=== PATIENT | female | born 1980 | race Caucasian/White ===

== ENCOUNTER 2021-03-07 16:55 | Observation (INO) | payer BC ==
--- NOTE | 2021-03-07 18:19 | PCM.LDHP ---
<Verena Johnson - Last Filed: 03/07/21 22:01> L&D History of Present Illness - General Date of Service: 03/07/21 Admit Problem/Dx: Admission Diagnosis/Problem Admission Diagnosis/Problem Source of Information: Patient, Significant Other - History of Present Illness Introduction:: Whitney Wiseman is a 40 year old female who is day two from in [place]. Dr. Bowser is her tax evaluator. Whitney presents today with concerns for elevated blood pressures. She states that she had gestational hypertension during this and was diagnosed with pre-eclampsia in her last . Her blood pressures had been stable on Labetalol. However, she was noted to have an elevated blood pressure prior to discharge home, and her labetalol was increased to 200mg TID. She had previously been taking 100mg TID. She states there was a mix up at the pharmacy, and she had received the 100mg dosage of her medication. She also thinks that she may have missed a dose of Labetalol while on the way home from the hospital yesterday. She and her had been monitoring her blood pressures today and noted they were significantly elevated to 185/90, 192/100. [address] Bowser's office and were told that they should present to the OB floor for further evaluation. Due to her high blood pressures and distance from [place], her made the decision to stop here in [facility] for evaluation. Whitney has been otherwise feeling well. She denies any headache, vision changes, abdominal pain, or shortness of breath. She is currently . She has no other concerns. - Related Data Allergies/Adverse Reactions: Allergies Allergy/AdvReac Type Severity Reaction Status Date / Time No Known Allergies Allergy Verified 01/31/16 19:53 Home Medications: Home Meds Aspirin 81 mg PO DAILY 01/27/16 [History] Labetalol HCl [Labetalol] 200 mg PO TID 01/27/16 [History] Vit No.129/Iron/FA [ One Daily Tablet] 1 tab PO DAILY 01/27/16 [History] Past Medical History HEENT History: Reports: None Cardiovascular History: Reports: Other (See Below) Other Cardiovascular History: preeclampsia Respiratory History: Reports: None Gastrointestinal History: Reports: None Genitourinary History: Reports: None 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: Musculoskeletal History: Reports: None Neurological History: Reports: None Psychiatric History: Reports: None Endocrine/Metabolic History: Reports: None Hematologic History: Reports: None Immunologic History: Reports: None Oncologic (Cancer) History: Reports: None Dermatologic History: Reports: None - Infectious Disease History Infectious Disease History: Reports: None - Past Surgical History Head Surgeries/Procedures: Reports: None Social & Family History - Family History Family Medical History: No Pertinent Family History H&P Review of Systems - Review of Systems: Review Of Systems: See Below General: Denies: Fever, Chills HEENT: Denies: Headaches, Sore Throat, Visual Changes Pulmonary: Denies: Shortness of Breath, Wheezing Cardiovascular: Reports: Edema. Denies: Chest Pain, Palpitations, Dyspnea on Exertion, Syncope Gastrointestinal: Denies: Abdominal Pain, Diarrhea, Nausea, Vomiting Genitourinary: Denies: Dysuria, Frequency, Burning Skin: Denies: Cyanosis, Rash Neurological: Denies: Dizziness, Headache, Numbness, Tingling, Change in Speech Hematologic/Lymphatic: Reports: Anemia. Denies: Easy Bleeding, Easy Bruising Immunologic: Denies: Anaphylaxis, Environmental Allergy L&D Exam - Exam Exam: See Below - Exam General: No: Alert, Oriented HEENT: No: Pupils Equal, PERRLA Neck: No: Supple, Lymphadenopathy Lungs: No: Clear to Auscultation, Normal Respiratory Effort Cardiovascular: No: Regular Rate, Regular Rhythm GI/Abdominal Exam: No: Normal Bowel Sounds, Soft Extremities: Pedal Edema, Other (1+ lower extremity edema). No: Non-Tender Skin: Warm, Dry, Intact Neurological: Cranial Nerves Intact, Reflexes Equal Bilateral, Strength Equal Bilateral, Normal Tone DTR: 3+: Patella (L), Patella (R), Achilles (L), Achilles (R) Psychiatric: Alert, Normal Mood - Patient Data Result Diagrams: 03/07/21 18:31 03/07/21 18:31 Problem List Initiated/Reviewed/Updated: Yes Assessment/Plan Comment:: Assessment: Whitney Wiseman is a 40 year old female who is day two from , here with elevated blood pressures secondary to pre- eclampsia Plan: - Blood pressure elevated to 169/99 on presentation to the OB floor. She was given a dose of 10mg IV labetalol with improvement of her blood pressures. Most recent blood pressure 140/69. - PIH labs were obtained, LDH was slightly elevated at 253. - Urine PCR was elevated at 0.3, consistent with pre-eclampsia. - She was loaded with 4mg of Magnesium and started on an infusion with a rate of 2g/hr. - Will monitor magnesium levels and blood pressures closely. - The case was discussed with Dr. Guzman, who is telecommunications linesworker for OBG[employer] in [place]. He is in agreement with current management and will update Dr. Bowser on the patient. <Yudelka Spring - Last Filed: 03/08/21 07:55> L&D History of Present Illness - General Admit Problem/Dx: Patient Status Order with Admit Dx/Problem 03/07/21 19:33 Patient Status [ADT] Routine Admission Diagnosis/Problem Admission Diagnosis/Problem Pre-eclampsia, L&D Exam - Vital Signs Vital Signs: Last Vital Signs Temp 98.7 F 03/08/21 06:00 Pulse 82 03/08/21 06:00 Resp 16 03/08/21 06:00 BP 147/82 H 03/08/21 06:00 Pulse Ox 98 03/08/21 06:00 - Patient Data Lab Results Last 24 hrs: Laboratory Results - last 24 hr 03/07/21 03/07/21 03/07/21 Range/Units 18:31 18:31 18:55 WBC 9.3 (5.0-10.0) 10^3/uL RBC 3.85 L (4.2-5.4) 10^6/uL Hgb 11.3 L (12.0-16.0) g/dL Hct 33.9 L (37.0-47.0) % MCV 88.1 (80-100) fL MCH 29.4 (27.0-34.0) pg MCHC 33.3 (33.0-35.0) g/dL Plt Count 252 (150-450) 10^3/uL BUN 15 (7-18) mg/dL Creatinine 0.74 (0.55-1.02) mg/dL Est Cr Clr Drug Dosing TNP Estimated GFR (MDRD) > 60 Uric Acid 3.9 (2.6-6.0) mg/dL Magnesium (1.8-2.4) mg/dL AST 24 (15-37) U/L ALT 41 (14-59) U/L Lactate Dehydrogenase 253 H (81-234) U/L Urine Color Yellow (YELLOW) Urine Appearance Slightly cloudy (CLEAR) Urine pH 7.0 (5.0-9.0) Ur Specific [place] 1.020 (1.005-1.030) Urine Protein Negative (NEGATIVE) Urine Glucose (UA) Negative (NEGATIVE) Urine Ketones Negative (NEGATIVE) Urine Occult Blood Negative (NEGATIVE) Urine Nitrite Negative (NEGATIVE) Urine Bilirubin Negative (NEGATIVE) Urine Urobilinogen 0.2 (0.2-1.0) mg/dL Ur Leukocyte Esterase Negative (NEGATIVE) Ur Random Creatinine (No establ ref range) mg/dL U Random Total Protein (0.0-11.9) mg/dL Protein/Creatinin Ratio (<150.0) mg/g 03/07/21 03/08/21 Range/Units 18:55 02:03 WBC (5.0-10.0) 10^3/uL RBC (4.2-5.4) 10^6/uL Hgb (12.0-16.0) g/dL Hct (37.0-47.0) % MCV (80-100) fL MCH (27.0-34.0) pg MCHC (33.0-35.0) g/dL Plt Count (150-450) 10^3/uL BUN (7-18) mg/dL Creatinine (0.55-1.02) mg/dL Est Cr Clr Drug Dosing Estimated GFR (MDRD) Uric Acid (2.6-6.0) mg/dL Magnesium 4.6 H (1.8-2.4) mg/dL AST (15-37) U/L ALT (14-59) U/L Lactate Dehydrogenase (81-234) U/L Urine Color (YELLOW) Urine Appearance (CLEAR) Urine pH (5.0-9.0) Ur Specific [place] (1.005-1.030) Urine Protein (NEGATIVE) Urine Glucose (UA) (NEGATIVE) Urine Ketones (NEGATIVE) Urine Occult Blood (NEGATIVE) Urine Nitrite (NEGATIVE) Urine Bilirubin (NEGATIVE) Urine Urobilinogen (0.2-1.0) mg/dL Ur Leukocyte Esterase (NEGATIVE) Ur Random Creatinine 49.19 (No establ ref range) mg/dL U Random Total Protein 17.5 H (0.0-11.9) mg/dL Protein/Creatinin Ratio 355.8 H (<150.0) mg/g Result Diagrams: 03/07/21 18:31 03/07/21 18:31 Orders Last 24hrs: Active Orders 24 hr Category Date Time Status Patient Status [ADT] Routine ADT 03/07/21 19:33 Active Communication Order [RC] ROUTINE Care 03/07/21 21:00 Active Equipment to Bedside [RC] PRN Care 03/07/21 19:41 Active Lion Catheter Insertion [Insert Urinary Catheter] [OM. Care 03/07/21 20:30 Ordered PC] Q24H Lion Catheter Insertion [Insert Urinary Catheter] [OM. Care 03/08/21 20:30 Ordered PC] Q24H Notify Provider Vital Signs OB [RC] ASDIRECTED Care 03/07/21 19:33 Active Oxygen Therapy [RC] PRN Care 03/07/21 19:33 Active Urinary Catheter Assessment [RC] DAILY Care 03/08/21 02:28 Active Vital Signs [RC] ASDIRECTED Care 03/07/21 19:33 Active Regular Diet [DIET] Diet 03/08/21 Breakfast Active Labetalol [Normodyne] Med 03/08/21 08:00 Ordered 300 mg PO TID Lactated Ringers [Ringers, Lactated] 1,000 ml Med 03/07/21 21:45 Active IV ASDIRECTED Magnesium Sulfate/Water [Magnesium Sulfate in Water 20 Med 03/07/21 19:55 Active GM/500 ML] 20 gm in 500 ml IV TITRATE Blood Pressure [OM.PC] Per Unit Routine Oth 03/07/21 19:33 Ordered Deep Tendon Reflexes [WOMSER] Per Unit Routine Oth 03/07/21 19:33 Ordered Medication Orders Magnesium Sulfate (Magnesium Sulfate In Water 20 Gm/500 Ml) 20 gm in 500 mls @ 50 mls/hr IV TITRATE S[facility]ETA Last Admin: 03/08/21 05:30 Dose: 50 mls/hr Documented by: Infusion: 03/08/21 05:30 Dose: 50 mls/hr Documented by: Admin: 03/07/21 20:20 Dose: 50 mls/hr Documented by: MORGAN Lactated Ringer's (Ringers, Lactated) 1,000 mls @ 75 mls/hr IV ASDIRECTED [facility] Last Admin: 03/07/21 20:20 Dose: 75 mls/hr Documented by: MORGAN Labetalol HCl (Labetalol 100 Mg Tab) 300 mg PO TID SANGEETA Assessment/Plan Comment:: Patient seen and examined. Agree with note as written by Dr. Johnson. Clar ification Pro/cr ratio 0.36 by catheter obtained sample. -admin assistant 03/08/2021 [id number].
[2021-03-07] MEDS ORDERED: Labetalol 20 MG/4 ML Syringe IVPUSH ONE (18:21)
[2021-03-07] MEDS ORDERED: Magnesium Sulfate/Water 4 GM in Premix Bag 1 BAG IV ONE (19:35)
[2021-03-07] MEDS: Magnesium Sulfate/Water 20 GM/500 ML BAG IV SCH (20:20)
[2021-03-07] MEDS ORDERED: Lactated Ringers 1,000 ML IV SCH (21:45)
[2021-03-08] MEDS: Magnesium Sulfate/Water 20 GM/500 ML BAG IV SCH ×2 (05:30→15:26)
[2021-03-08] MEDS ORDERED: Labetalol 100 MG Tab ONE (07:55)
[2021-03-08] MEDS ORDERED: Labetalol 100 MG Tab PO SCH ×2 (08:00)
--- NOTE | 2021-03-08 08:16 | PCM.PNPP ---
- General Info Date of Service: 03/08/21 Subjective Update: Whitney Wiseman is a 40 year old female who is day three from in [place]. She states she is feeling well. She denies any headache, visual changes, or shortness of breath. She was noted to have an oxygen desaturation last night to 88% which required oxygen supplementation with 2L nasal canula. This is now resolved, and she is breathing well on room air. She continues to breastfeed and denies any issues. She has no other concerns. Functional Status: Reports: Pain Controlled - Review of Systems General: Denies: Fever, Fatigue, Chills HEENT: Denies: Headaches, Visual Changes Pulmonary: Denies: Shortness of Breath, Cough Cardiovascular: Reports: Edema. Denies: Chest Pain, Dyspnea on Exertion Gastrointestinal: Denies: Abdominal Pain, Nausea, Vomiting Skin: Denies: Pruritis, Rash Neurological: Denies: Dizziness, Headache, Numbness, Tingling, Change in Speech - General Info Date of Service: 03/08/21 - Patient Data Vital Signs - Most Recent: Last Vital Signs Temp 98.7 F 03/08/21 06:00 Pulse 82 03/08/21 07:58 Resp 16 03/08/21 06:00 BP 161/74 H 03/08/21 07:58 Pulse Ox 98 03/08/21 06:00 Weight - Most Recent: 202 lb I&O - Last 24 Hours: Intake & Output 03/07/21 03/08/21 03/08/21 22:59 06:59 14:59 Intake Total 100 500 Output Total 1500 367% Balance -1400 -316/ Lab Results - Last 24 Hours: Laboratory Results - last 24 hr 03/07/21 03/07/21 03/07/21 Range/Units 18:31 18:31 18:55 WBC 9.3 (5.0-10.0) 10^3/uL RBC 3.85 L (4.2-5.4) 10^6/uL Hgb 11.3 L (12.0-16.0) g/dL Hct 33.9 L (37.0-47.0) % MCV 88.1 (80-100) fL MCH 29.4 (27.0-34.0) pg MCHC 33.3 (33.0-35.0) g/dL Plt Count 252 (150-450) 10^3/uL BUN 15 (7-18) mg/dL Creatinine 0.74 (0.55-1.02) mg/dL Est Cr Clr Drug Dosing TNP Estimated GFR (MDRD) > 60 Uric Acid 3.9 (2.6-6.0) mg/dL Magnesium (1.8-2.4) mg/dL AST 24 (15-37) U/L ALT 41 (14-59) U/L Lactate Dehydrogenase 253 H (81-234) U/L Urine Color Yellow (YELLOW) Urine Appearance Slightly cloudy (CLEAR) Urine pH 7.0 (5.0-9.0) Ur Specific [place] 1.020 (1.005-1.030) Urine Protein Negative (NEGATIVE) Urine Glucose (UA) Negative (NEGATIVE) Urine Ketones Negative (NEGATIVE) Urine Occult Blood Negative (NEGATIVE) Urine Nitrite Negative (NEGATIVE) Urine Bilirubin Negative (NEGATIVE) Urine Urobilinogen 0.2 (0.2-1.0) mg/dL Ur Leukocyte Esterase Negative (NEGATIVE) Ur Random Creatinine (No establ ref range) mg/dL U Random Total Protein (0.0-11.9) mg/dL Protein/Creatinin Ratio (<150.0) mg/g 03/07/21 03/08/21 Range/Units 18:55 02:03 WBC (5.0-10.0) 10^3/uL RBC (4.2-5.4) 10^6/uL Hgb (12.0-16.0) g/dL Hct (37.0-47.0) % MCV (80-100) fL MCH (27.0-34.0) pg MCHC (33.0-35.0) g/dL Plt Count (150-450) 10^3/uL BUN (7-18) mg/dL Creatinine (0.55-1.02) mg/dL Est Cr Clr Drug Dosing Estimated GFR (MDRD) Uric Acid (2.6-6.0) mg/dL Magnesium 4.6 H (1.8-2.4) mg/dL AST (15-37) U/L ALT (14-59) U/L Lactate Dehydrogenase (81-234) U/L Urine Color (YELLOW) Urine Appearance (CLEAR) Urine pH (5.0-9.0) Ur Specific [place] (1.005-1.030) Urine Protein (NEGATIVE) Urine Glucose (UA) (NEGATIVE) Urine Ketones (NEGATIVE) Urine Occult Blood (NEGATIVE) Urine Nitrite (NEGATIVE) Urine Bilirubin (NEGATIVE) Urine Urobilinogen (0.2-1.0) mg/dL Ur Leukocyte Esterase (NEGATIVE) Ur Random Creatinine 49.19 (No establ ref range) mg/dL U Random Total Protein 17.5 H (0.0-11.9) mg/dL Protein/Creatinin Ratio 355.8 H (<150.0) mg/g Med Orders - Current: Current Medications Magnesium Sulfate (Magnesium Sulfate In Water 20 Gm/500 Ml) 20 gm in 500 mls @ 50 mls/hr IV TITRATE [facility] Last Admin: 03/08/21 05:30 Dose: 50 mls/hr Documented by: Lactated Ringer's (Ringers, Lactated) 1,000 mls @ 75 mls/hr IV ASDIRECTED [facility] Last Admin: 03/07/21 20:20 Dose: 75 mls/hr Documented by: Labetalol HCl (Labetalol 100 Mg Tab) 300 mg PO TID [facility] Last Admin: 03/08/21 07:58 Dose: 300 mg Documented by: Discontinued Medications Magnesium Sulfate 4 gm/ Premix 100 mls @ 300 mls/hr IV ONETIME ONE Stop: 03/07/21 19:54 Last Admin: 03/07/21 19:59 Dose: 300 mls/hr Documented by: Labetalol HCl (Labetalol 20 Mg/4 Ml Syringe) 10 mg IVPUSH ONETIME ONE Stop: 03/07/21 18:22 Last Admin: 03/07/21 19:31 Dose: 10 mg Documented by: Labetalol HCl (Labetalol 100 Mg Tab) 200 mg PO TID [facility] Labetalol HCl (Labetalol 100 Mg Tab) Confirm Administered Dose 300 mg .ROUTE .STK-MED ONE Stop: 03/08/21 07:56 - Interaction Support Person: - Recovery Exam Fundal Tone: Firm Fundal Level: At Umbilicus Fundal Placement: Midline Lochia Amount: Small Lochia Color: Rubra/Red - Exam General: Alert, Oriented HEENT: Pupils Equal, Pupils Reactive Neck: Supple Lungs: Clear to Auscultation, Normal Respiratory Effort Cardiovascular: Regular Rate, Regular Rhythm GI/Abdominal Exam: Normal Bowel Sounds, Soft Extremities: Normal Inspection, Other (1+ lower extremity edema) Skin: Warm, Dry, Intact Neurological: Normal Speech, Normal Tone, Strength Equal Bilateral, Reflexes Equal Bilateral, Sensation Intact, Other (No clonus) Psy/Mental Status: Normal Affect, Normal Mood - Problem List Review Problem List Initiated/Reviewed/Updated: Yes - My Orders Last 24 Hours: My Active Orders 03/07/21 19:33 Patient Status [ADT] Routine Notify Provider Vital Signs OB [RC] ASDIRECTED Oxygen Therapy [RC] PRN Vital Signs [RC] ASDIRECTED Blood Pressure [OM.PC] Per Unit Routine Deep Tendon Reflexes [WOMSER] Per Unit Routine 03/07/21 19:41 Equipment to Bedside [RC] PRN 03/07/21 19:55 Magnesium Sulfate/Water [Magnesium Sulfate in Water 20 GM/500 ML] 20 gm in 500 ml IV TITRATE - Assessment Assessment:: Whitney Wiseman is a 40 year old female who is day 3 from in [place], found to have preeclampsia and currently on magnesium sulfate. - Plan Plan:: 1. Preeclampsia - Blood pressures had improved significantly after receiving 10mg IV labetalol and starting magnesium sulfate on arrival to the OB floor. Pressures had gotten down to 129/68 early this morning around 5am. However, blood pressure around 7 this morning had increased to 161/74. We had initially planned to continue Labetalol 200mg TID. This has been increased to 300 TID. We'll continue to monitor closely. Plan to continue Magnesium infusion for at least 24 hours; it was started around 8pm last night. - Magnesium levels have been ordered every 6 hours. 2. Oxygen desaturation - Potentially secondary to undiagnosed sleep apnea. She is otherwise doing well now. - Continue to monitor oxygen status closely. 3. day #3, - Doing well, denies any concerns - Continue with routine cares
[2021-03-08] MEDS: Labetalol 100 MG Tab PO SCH ×2 (14:05→21:36)
[2021-03-09] MEDS: Labetalol 100 MG Tab PO SCH (06:15)
[2021-03-09] MEDS ORDERED: Labetalol 100 MG Tab PO ONE (08:33)
--- NOTE | 2021-03-09 09:01 | PCM.PNPP ---
- General Info Date of Service: 03/09/21 Subjective Update: Whitney Wiseman is a 40 year old female who is day four from in [place]. She states she is feeling well. She denies any headache, visual changes, or shortness of breath. She states she is feeling much better after the magnesium was stopped. She continues to breastfeed and denies any issues. She has no other concerns. Functional Status: Reports: Pain Controlled - Review of Systems General: Denies: Fever, Chills HEENT: Denies: Headaches, Sore Throat, Visual Changes Pulmonary: Denies: Shortness of Breath, Cough Cardiovascular: Denies: Chest Pain, Dyspnea on Exertion, Edema Gastrointestinal: Denies: Abdominal Pain, Nausea, Vomiting Genitourinary: Denies: Dysuria, Frequency, Burning Skin: Denies: Cyanosis, Rash Neurological: Denies: Dizziness, Headache - General Info Date of Service: 03/09/21 - Patient Data Vital Signs - Most Recent: Last Vital Signs Temp 98 F 03/09/21 04:00 Pulse 64 03/09/21 06:15 Resp 18 03/09/21 04:00 BP 145/82 H 03/09/21 06:15 Pulse Ox 97 03/09/21 00:00 Weight - Most Recent: 202 lb I&O - Last 24 Hours: Intake & Output 03/08/21 03/09/21 03/09/21 22:59 06:59 14:59 Intake Total 1600 Output Total 230 Balance -68$ Lab Results - Last 24 Hours: Laboratory Results - last 24 hr 03/08/21 03/08/21 Range/Units 09:05 14:59 Magnesium 5.4 H 5.7 H (1.8-2.4) mg/dL Med Orders - Current: Current Medications Magnesium Sulfate (Magnesium Sulfate In Water 20 Gm/500 Ml) 20 gm in 500 mls @ 50 mls/hr IV TITRATE [facility] Last Admin: 03/08/21 15:26 Dose: 50 mls/hr Documented by: Lactated Ringer's (Ringers, Lactated) 1,000 mls @ 75 mls/hr IV ASDIRECTED [facility] Last Admin: 03/07/21 20:20 Dose: 75 mls/hr Documented by: Labetalol HCl (Labetalol 100 Mg Tab) 400 mg PO Q8HR [facility] Labetalol HCl (Labetalol 100 Mg Tab) 100 mg PO ONETIME ONE Stop: 03/09/21 08:34 Discontinued Medications Magnesium Sulfate 4 gm/ Premix 100 mls @ 300 mls/hr IV ONETIME ONE Stop: 03/07/21 19:54 Last Admin: 03/07/21 19:59 Dose: 300 mls/hr Documented by: Labetalol HCl (Labetalol 20 Mg/4 Ml Syringe) 10 mg IVPUSH ONETIME ONE Stop: 03/07/21 18:22 Last Admin: 03/07/21 19:31 Dose: 10 mg Documented by: Labetalol HCl (Labetalol 100 Mg Tab) 200 mg PO TID [facility] Labetalol HCl (Labetalol 100 Mg Tab) 300 mg PO TID [facility] Last Admin: 03/08/21 07:58 Dose: 300 mg Documented by: Labetalol HCl (Labetalol 100 Mg Tab) Confirm Administered Dose 300 mg .ROUTE .STK-MED ONE Stop: 03/08/21 07:56 Last Admin: 03/08/21 09:05 Dose: Not Given Documented by: Labetalol HCl (Labetalol 100 Mg Tab) 300 mg PO Q8HR [facility] Last Admin: 03/09/21 06:15 Dose: 300 mg Documented by: - Infant Interaction Support Person: - Recovery Exam Fundal Tone: Firm Fundal Level: At Umbilicus Fundal Placement: Midline Lochia Amount: Scant Lochia Color: Serosa/[place] Perineum Description: Intact, Minimal Bruising/Swelling - Exam General: Alert, Oriented HEENT: Pupils Equal, Pupils Reactive Neck: Supple Lungs: Clear to Auscultation, Normal Respiratory Effort Cardiovascular: Regular Rate, Regular Rhythm GI/Abdominal Exam: Normal Bowel Sounds Extremities: Normal Inspection, Non-Tender, Pedal Edema (trace pedal edema) Skin: Warm, Intact Psy/Mental Status: Alert, Normal Mood - Problem List Review Problem List Initiated/Reviewed/Updated: Yes - Assessment Assessment:: Whitney Wiseman is a 40 year old female who is day 4 from in [place], found to have preeclampsia, now s/p 24 hours of magnesium sulfate. - Plan Plan:: 1. Preeclampsia - Blood pressures began uptrending again yesterday evening into the 150s systolic. Most recent blood pressure of 145/82. We'll increase her Labetalol to 400mg TID today. We'll continue to monitor closely. She will likely discharge home tomorrow, but we'll see how her blood pressures look throughout the day. - Magnesium was continued for 24 hours and stopped yesterday evening. 2. day #4, - Doing well, denies any concerns - Continue with routine cares
[2021-03-09] MEDS ORDERED: Labetalol 100 MG Tab PO SCH (14:00)
[2021-03-09 17:03] VITALS: BP 154/74; PULSE 74
--- NOTE | 2021-03-10 13:48 | PN ---
DATE: 03/09/2021 SUBJECTIVE: The patient in her hospital day #3, readmitted for preeclampsia. She is now status post magnesium seizure prophylaxis and is on labetalol 400 mg t.i.d. p.o. The patient states that she is feeling much better. She does desire discharge. Baby is with her and is also doing well. The patient has no headache. No vision change. No right upper quadrant pain. PHYSICAL EXAMINATION: Vital Signs: She is afebrile. Heart rate is 68 to 74, blood pressure is now 154 to 155 systolic/73 to 78 diastolic. LABORATORY DATA: -induced hypertension labs were performed. When the patient was admitted, LDH was mildly elevated at 353, protein creatinine ratio was 0.4, otherwise labs were normal. ASSESSMENT AND PLAN: Hospital day #3, readmitted for preeclampsia, now status post magnesium. We will discharge her to home on labetalol 400 mg t.i.d. She will continue to monitor her blood pressure at home and call with any values that are 160/110. On admission, this patient's blood pressures were in the 160s/90s and she did require IV antihypertensives. Her blood pressures appeared to have stabilized well now. The patient already does have a followup scheduled in [place] on 03/14/2021. [facility] /[id number]
== END 2021-03-09 19:08 | disposition home or self-care (01) ==
LOC: DL.OBCHECK 16:55 → DL.OB 19:33 → DL.MS 03-09 12:03
PROVIDERS: ADMIT Family Medicine; ATTEND Family Medicine
DX: O14.95 Unspecified pre-eclampsia, complicating the puerperium (principal); O13.5 Gestational [pregnancy-induced] hypertension without significant proteinuria, complicating the puerperium; Z79.82 Long term (current) use of aspirin
CPT/HCPCS: 36415; 51702; 81003; 82565; 82570; 83615; 83735; 84156; 84450; 84460; 84520; 84550; 85027; 96365; 96366; 96375; A9270-GY; G0378; J3475; J3490; J7120